=== PATIENT | male | born 1965 | race Caucasian/White ===

== ENCOUNTER → 2024-06-25 13:30 | Outpatient (REF) | payer MEDICARE, OTHER, SELFPAY | LOC: HWRAD 13:30 | PROVIDERS: ATTENDING PHYSICIAN Family Medicine | DX: M54.51 Vertebrogenic low back pain (principal) | CPT/HCPCS: 72110; 72170 ==

== ENCOUNTER → 2024-07-07 06:25 | Day surgery (SDC) | payer MEDICARE, OTHER, SELFPAY | LOC: GI 06:25 | PROVIDERS: ATTENDING PHYSICIAN Internal Medicine | DX: Z12.11 Encounter for screening for malignant neoplasm of colon (principal); Z80.0 Family history of malignant neoplasm of digestive organs; Z83.710 Family history of adenomatous and serrated polyps; D12.0 Benign neoplasm of cecum; D12.2 Benign neoplasm of ascending colon; K64.8 Other hemorrhoids | CPT/HCPCS: 45385; 45381; 88305; J1610 ==

== ENCOUNTER 2025-01-15 06:25 | Day surgery (SDC) | payer MEDICARE, OTHER, SELFPAY | END 2025-01-15 09:41 | disposition home or self-care (01) | LOC: GI 06:25 | PROVIDERS: ATTENDING PHYSICIAN Internal Medicine | DX: Z09 Encounter for follow-up examination after completed treatment for conditions other than malignant neoplasm (principal); Z86.0101 Personal history of adenomatous and serrated colon polyps; K64.8 Other hemorrhoids; D12.2 Benign neoplasm of ascending colon; D12.4 Benign neoplasm of descending colon; K63.5 Polyp of colon; Z83.719 Family history of colon polyps, unspecified; Z80.0 Family history of malignant neoplasm of digestive organs | CPT/HCPCS: 45385; 45380; 88305 ==